=== PATIENT | male | born 1940 | race Caucasian/White ===

== ENCOUNTER 2022-08-16 08:09 | Emergency (ER) | payer OTHER, MEDICARE ==
[~2022-08-16] VITALS: Ht 165.1 cm; Wt 59.4 kg
[~2022-08-16 08:09] MED LIST: CYAN1TAB52 PO; FERR-57 PO; LACTIN PO; LEVO500T20 PO; LISI30TA36 PO; MULT PO; PRO40 PO
[2022-08-16 08:22] VITALS: BP_SYST 55
--- NOTE | 2022-08-16 08:22 | NUR ---
Patient to ER bed 07 to gown for evaluation. Side rails up.
--- NOTE | 2022-08-16 08:25 | NUR ---
PATIENT BIB SELF C/O RIGHT FLANK PAIN 5/10 THAT MOVES TO INGUINAL AREA X 2-3 DAYS INCREASING YESTERDAY. PATIENT STATES HISTORY OF KIDNEY STONES X 4. PATIENT DESCRIBES PAIN "ANNOYING" & STATES THAT CURRENT PAIN FEELS LIKE PREVIOUS KIDNEY STONES WITH EXCEPTION THAT HE DOES NOT FEEL THIS "MOVING". OTHER MED HX OF HTN. SX HX OF BACK SX & TONSILECTOMY.
--- NOTE | 2022-08-16 08:33 | NUR ---
DR PICKERING AT BEDSIDE
[2022-08-16] MEDS ORDERED: KETOROLAC TROMETHAMINE 30 MG VIAL IM ONE (08:45)
[2022-08-16 09:01] LABS: EOSINOPHILS % (AUTO) 0.7 % (0.0-4.0); HEMATOCRIT 34.4 % (36-54); HEMOGLOBIN 11.9 g/dL (14.0-18.0); LYMPHOCYTES # (AUTO) 0.7 K/uL (1.0-5.5); LYMPHOCYTES % (AUTO) 14.2 % (20.5-51.5); MEAN CORPUSCULAR HEMOGLOBIN 34 pg (27-31); MEAN CORPUSCULAR HGB CONC 35 % (32-36); MEAN CORPUSCULAR VOLUME 98 fL (79.0-98.0); MONOCYTES # (AUTO) 0.5 K/uL (0.0-1.0); MONOCYTES % (AUTO) 9.6 % (1.7-9.3); NEUTROPHILS # (AUTO) 3.6 K/uL (1.8-7.7); NEUTROPHILS % (AUTO) 74.5 % (40.0-70.0); PLATELET COUNT (AUTO) 192 K/uL (130-430); RED BLOOD CELL COUNT(AUTO) 3.52 MIL/uL (4.2-6.2); RED CELL DISTRIBUTION WIDTH 13.1 % (9.0-15.0); WHITE BLOOD COUNT (AUTO) 4.8 K/uL (4.8-10.8)
[2022-08-16 09:15] LABS: ANION GAP 7 (5-15); CALCIUM 8.8 mg/dL (8.4-11.0); CHLORIDE 99 mmol/L (98-107); CREATININE 0.86 mg/dL (0.55-1.30); GLUCOSE 122 mg/dL (70-99); UREA NITROGEN, BLOOD 16 mg/dL (8-21)
[2022-08-16 09:19] LABS: ALANINE AMINOTRANSFERASE 30 U/L (12-78); ALBUMIN 3.7 g/dL (3.4-4.8); ASPARTATE AMINOTRANSFERASE 31 U/L (10-37); LIPASE 127 U/L (73-393); TOTAL BILIRUBIN 0.4 mg/dL (0.0-1.0)
--- NOTE | 2022-08-16 09:27 | NUR ---
PATIENT TO CT
--- NOTE | 2022-08-16 10:14 | NUR ---
URINE SAMPLE LABELED AND TAKEN TO LAB
[2022-08-16 10:45] LABS: CLARITY/URINE CLEAR (CLEAR); COLOR,URINE YELLOW (YELLOW)
[2022-08-16 10:46] LABS: BILIRUBIN,URINE NEGATIVE (NEGATIVE); BLOOD, URINE NEGATIVE (NEGATIVE); GLUCOSE,URINE NEGATIVE (NEGATIVE); KETONES,URINE 1+ (NEGATIVE); LEUKOCYTE ESTERASE ,URINE NEGATIVE (NEGATIVE); NITRITE, URINE NEGATIVE (NEGATIVE); PROTEIN URINE 1+ (NEGATIVE); UROBILINOGEN,URINE 0.2 (0.2-1.0)
[2022-08-16 10:48] LABS: BACTERIA,URINE RARE /HPF (None Seen); RBC,URINE NONE SEEN /HPF (0-3); WBC,URINE 0-3 /HPF (0-3)
--- NOTE | 2022-08-16 12:30 | NUR ---
Pt A&Ox4, VSS, respirations even and unlabored.
--- NOTE | 2022-08-16 13:42 | NUR ---
Patient given written and verbal discharge instructions and verbalizes understanding. ER MD discussed with patient the results and treatment provided. Patient in stable condition. ID arm band removed. No Rx given. Patient educated on pain management and to follow up with PMD. Pain Scale 0/10. Opportunity for questions provided and answered. Medication side effect fact sheet provided.
[2022-08-16 13:44] VITALS: BP_SYST 133
== END 2022-08-16 13:42 | disposition home or self-care (01) ==
LOC: SED 08:09
DX: N28.1 Cyst of kidney, acquired (principal); K57.90 Diverticulosis of intestine, part unspecified, without perforation or abscess without bleeding; E27.8 Other specified disorders of adrenal gland; N40.1 Benign prostatic hyperplasia with lower urinary tract symptoms; R10.31 Right lower quadrant pain; I10 Essential (primary) hypertension; Z88.0 Allergy status to penicillin; Z79.899 Other long term (current) drug therapy
CPT/HCPCS: 99285; 74176; 80053; 81000; 83690; 85025; 36415; 76376; 96372; J1885